=== PATIENT | female | born 1935 | race American Indian/Alaskan Native ===

== ENCOUNTER 2018-07-21 11:06 | Day surgery (SDC) | payer MEDICARE ==
[~2018-07-21 11:06] MED LIST: IOPIDINE ONE; MYDRIACYL ONE; NEOFRIN ONE
[2018-07-21] MEDS ORDERED: NEOFRIN OD ONE (11:35)
[2018-07-21] MEDS ORDERED: MYDRIACYL OD ONE (11:35)
[2018-07-21] MEDS ORDERED: IOPIDINE OD ONE (11:35)
[2018-07-21 12:54] VITALS: BP 173/72
== END 2018-07-21 11:07 | disposition home or self-care (01) ==
LOC: OR 11:06
PROVIDERS: ATTEND Specialist
DX: H26.491 Other secondary cataract, right eye (principal); E78.00 Pure hypercholesterolemia, unspecified; I10 Essential (primary) hypertension; K21.9 Gastro-esophageal reflux disease without esophagitis; M19.90 Unspecified osteoarthritis, unspecified site; Z96.653 Presence of artificial knee joint, bilateral; Z96.642 Presence of left artificial hip joint; Z88.2 Allergy status to sulfonamides; Z79.899 Other long term (current) drug therapy; Z98.41 Cataract extraction status, right eye; Z98.42 Cataract extraction status, left eye; Z90.49 Acquired absence of other specified parts of digestive tract; Z90.710 Acquired absence of both cervix and uterus; Z98.890 Other specified postprocedural states; Z88.8 Allergy status to other drugs, medicaments and biological substances